=== PATIENT | female | born 1995 | race African-American/Black ===

== ENCOUNTER → 2019-05-14 | Outpatient (CLI) | payer OTHER | LOC: MHCPAIN 09:21 | DX: M47.817 Spondylosis without myelopathy or radiculopathy, lumbosacral region (principal); M53.3 Sacrococcygeal disorders, not elsewhere classified | CPT/HCPCS: G0463 ==

== ENCOUNTER 2023-07-25 09:36 | Emergency (ER) | payer MEDICAID ==
[~2023-07-25] VITALS: Ht 170.2 cm; Wt 72.7 kg
[~2023-07-25 09:36] MED LIST: CHERATUSSIN AC240 ML PO; PHENERGAN W/CO120 M1 PO
[2023-07-25] MEDS ORDERED: Acetaminophen 500 MG TAB PO ONE (11:00)
[2023-07-25] MEDS ORDERED: Ibuprofen 400 MG TAB PO ONE (11:00)
[2023-07-25 12:22] VITALS: BP 115/83; PULSE 95; TEMP 98.7
== END 2023-07-25 12:22 | disposition home or self-care (01) ==
LOC: COL.ER 09:36
DX: J10.1 Influenza due to other identified influenza virus with other respiratory manifestations (principal)